=== PATIENT | female | born 1940 | race Caucasian/White ===

== ENCOUNTER → 2016-06-02 | Outpatient (CLI) | payer OTHER ==
[2016-06-02 16:38] LABS: BASOPHILS # (AUTO) 0.02 10*3/UL; BASOPHILS % (AUTO) 0.6 % (0-1); EOSINOPHILS % (AUTO) 4.3 % (0-8); HEMATOCRIT 42.8 % (37.0-47.0); HEMOGLOBIN 14.9 g/dL (12.0-16.0); IMM GRAN % (AUTO) 0 % (0-5); IMM GRAN# (AUTO) 0 10*3/UL; LYMPHOCYTES # (AUTO) 1.53 10*3/uL; LYMPHOCYTES % (AUTO) 44.2 % (10-50); MEAN CORPUSCULAR HGB CONC 34.8 g/dL (33-37); MEAN PLATELET VOLUME 9.9 FL (7.4-12.2); MONOCYTES % (AUTO) 11.6 % (5-15); NEUTROPHILS # (AUTO) 1.36 10*3/UL; NEUTROPHILS % (AUTO) 39.3 % (50-80); RDW COEFFICIENT OF VARIATION 13.6 % (11.5-14.5); WHITE BLOOD COUNT 3.46 10^3/uL (4.8-10.8)
[2016-06-02 16:48] LABS: PLATELET MORPHOLOGY COMMENT NORMAL MORPHOLOGY (NORM)
[2016-06-02 16:58] LABS: HEMOGLOBIN A1C 6.06 % (4.2-6.0); MEAN BLOOD GLUCOSE (CALC) 115.798 mg/dL
[2016-06-02 17:03] LABS: BILIRUBIN,TOTAL 1.5 mg/dL (0.3-1.2); BUN/CREATININE RATIO 38.57 (6-20); CALCIUM 9.7 mg/dL (8.7-10.7); CREATININE 0.7 mg/dL (0.50-1.20); LDL CHOLESTEROL,CALCULATED 129.2 mg/dL; MAGNESIUM 1.9 mg/dL (1.6-2.4); POTASSIUM 4.2 meq/L (3.8-5.2); TOTAL PROTEIN 7.1 g/dL (6.1-8.0)
[2016-06-02 17:15] LABS: ERYTHROCYTE SEDIMENTATION RATE 9 MM/HR (0-20)
[2016-06-02 17:20] LABS: FREE T4 (FREE THYROXINE) 1.51 ng/dL (0.93-1.71)
== END ==
LOC: MOB LAB 15:59
PROVIDERS: ATTEND Family Medicine
DX: E03.9 Hypothyroidism, unspecified (principal); E78.4 Other hyperlipidemia; I10 Essential (primary) hypertension; K21.9 Gastro-esophageal reflux disease without esophagitis; M85.80 Other specified disorders of bone density and structure, unspecified site; M79.1 Myalgia; M79.604 Pain in right leg; M79.605 Pain in left leg; Z79.899 Other long term (current) drug therapy
CPT/HCPCS: 36415; 80053; 80061; 82306; 82550; 82607; 83036; 83735; 84439; 84443; 85025; 85652; 99214; G0463

== ENCOUNTER → 2016-08-26 | Outpatient (CLI) | payer OTHER ==
[2016-08-26 16:08] LABS: BASOPHILS # (AUTO) 0.02 10*3/UL; BASOPHILS % (AUTO) 0.5 % (0-1); EOSINOPHILS % (AUTO) 2.5 % (0-8); HEMATOCRIT 46.2 % (37.0-47.0); HEMOGLOBIN 15.8 g/dL (12.0-16.0); LYMPHOCYTES # (AUTO) 1.44 10*3/uL; MEAN CORPUSCULAR HEMOGLOBIN 30.6 PG (27-31); MEAN CORPUSCULAR HGB CONC 34.2 g/dL (33-37); MEAN CORPUSCULAR VOLUME 89.5 FL (81-99); MEAN PLATELET VOLUME 10.1 FL (7.4-12.2); MONOCYTES # (AUTO) 0.48 10*3/UL (0.3-0.8); NEUTROPHILS # (AUTO) 1.95 10*3/UL; NEUTROPHILS % (AUTO) 48.9 % (50-80); RED BLOOD COUNT 5.16 10^6/uL (4.20-5.40)
[2016-08-26 16:14] LABS: PLATELET MORPHOLOGY COMMENT NORMAL MORPHOLOGY (NORM); RBC MORPHOLOGY COMMENT NORMAL MORPHOLOGY (NORM); WBC MORPHOLOGY COMMENT NORMAL MORPHOLOGY (NORM)
[2016-08-26 16:15] LABS: BUN/CREATININE RATIO 38.33 (6-20); CALCIUM 9.8 mg/dL (8.7-10.7); SERUM ALBUMIN 4.2 g/dL (3.5-4.8)
== END ==
LOC: MOB LAB 11:16
PROVIDERS: ATTEND Family Medicine
DX: E03.9 Hypothyroidism, unspecified (principal); E78.4 Other hyperlipidemia; R10.11 Right upper quadrant pain; R53.83 Other fatigue; J06.9 Acute upper respiratory infection, unspecified; R79.89 Other specified abnormal findings of blood chemistry
CPT/HCPCS: 36415; 80053; 82306; 84443; 85025; 99213; G0463